=== PATIENT | female | born 1970 | race Caucasian/White ===

== ENCOUNTER 2018-09-17 10:07 | Day surgery (SDC) | payer BC ==
[2018-09-17] MEDS ORDERED: ONDANSETRON 4 MG INJ IV (12:30)
[2018-09-17] MEDS ORDERED: LABETALOL HCL 20MG INJ IV (12:30)
[2018-09-17] MEDS ORDERED: hydrALAzine 20 MG INJ IV (12:30)
[2018-09-17] MEDS ORDERED: EPHEDrine SULFATE 50 MG/5 ML SYG IV (12:30)
[2018-09-17] MEDS ORDERED: morphine (1 MG/ML) 10ML SYRINGE IV ×2 (12:30)
[2018-09-17] MEDS ORDERED: FENTAnyl 50 MCG/ML VIAL IV ×2 (12:30)
[2018-09-17] MEDS ORDERED: PROPOFOL 40 ML (12:39)
== END 2018-09-17 17:14 | disposition home or self-care (01) ==
LOC: GIL 10:07
DX: Z12.11 Encounter for screening for malignant neoplasm of colon (principal); D12.5 Benign neoplasm of sigmoid colon; K64.8 Other hemorrhoids; R10.10 Upper abdominal pain, unspecified; I10 Essential (primary) hypertension; E78.5 Hyperlipidemia, unspecified; E11.9 Type 2 diabetes mellitus without complications
CPT/HCPCS: 43239; 88305